=== PATIENT | male | born 1940 | race Caucasian/White ===

== ENCOUNTER → 2023-11-13 12:08 | Outpatient (REF) | payer MEDICARE, SELFPAY | LOC: RAD 12:08 | PROVIDERS: ATTENDING PHYSICIAN Physician Assistant; FAMILY PHYSICIAN Internal Medicine | DX: I71.40 Abdominal aortic aneurysm, without rupture, unspecified (principal) | CPT/HCPCS: 74176 ==

== ENCOUNTER 2023-12-14 09:35 | Emergency (ER) | payer MEDICARE, SELFPAY ==
[2023-12-14 09:39] VITALS: BP 182/99
[2023-12-14 10:57] VITALS: BP 164/79
[2023-12-14 11:21] LABS: % Basophils 0.6 % (0-2); % Eosinophils 2.6 % (0-6); % Immature Granulocytes 0.5 % (0-0.5); % Monocytes 9.3 % (1.7-9.3); Absolute Eosinophils 0.2 10^3/uL (0-0.7); Absolute Lymphocytes 1.6 10^3/uL (1.2-3.4); Absolute Monocytes 0.6 10^3/uL (0.1-0.6); Absolute Neutrophils 4.2 10^3/uL (1.4-6.5); Hematocrit 41.7 % (39.0-52.0); Hemoglobin 14.4 g/dL (13.0-18.0); Mean Corp Hgb Conc. 34.5 g/dL (33.0-37.0); Mean Corpuscular Hgb 34.9 pg (27.0-31.0); Mean Platelet Volume 10.3 fL (7.4-10.4); Nucleated Red Blood Cells % 0 % (-); Platelet Count 137 10^3/uL (130-400); Red Blood Cell Count 4.13 10^6/uL (4.70-6.10); Red Cell Dist. Width 11.9 % (11.5-14.5); White Blood Cell Count 6.7 10^3/uL (4.8-10.8)
[2023-12-14 11:25] LABS: ALT (SGPT) 59 U/L (0-50); AST (SGOT) 38 U/L (17-59); Albumin 4.5 g/dl (3.5-5.0); Alkaline Phosphatase 93 U/L (38-126); Blood Urea Nitrogen 19 mg/dl (9-20); Calcium 9.4 mg/dl (8.4-10.2); Carbon Dioxide 24 mmol/L (22-30); Chloride 111 mmol/L (98-107); Glucose 117 mg/dl (70-99); Potassium 4.3 mmol/L (3.5-5.1); Sodium 139 mmol/L (135-145); Total Bilirubin 1.4 mg/dl (0.2-1.3); Total Protein 7.1 g/dl (6.3-8.2); eGFR > 60.00
--- NOTE | 2023-12-14 11:26 | ED.GENMED ---
History of Present Illness
<Keyla Celaya PA-C - Last Filed: 12/14/23 14:04>
General
Chief Complaint: Blood Pressure Problem
Source: patient and family
Exam Limitations: none
Time Seen by Provider: 12/14/23 10:52
Nursing documentation reviewed up to this point in time: agreed with
Travel History
Have you had any contact with someone who has COVID-19?: No
Do you have any symptoms of coronavirus? Fever > 100 degrees, chills, cough, shortness of breath, sore throat, loss of taste or smell, muscle aches, or headache?: No
History of Present Illness
History of Present Illness:
83-year-old male with a history of CVA, AAA, hypertension, hyperlipidemia presenting to the emergency department today with concerns of high blood pressure. Patient states that he has a follow-up appointment with his remelt operator and his primary
care provider regarding his blood pressure, he was doing a routine check today when he noticed that his systolic blood pressure was in the 200s in the 180s at times. He notes that his blood pressure normally runs systolically in the 130s to 140s.
Patient states that he has been on and off losartan many times in the past. He states that his blood pressure will ultimately be controlled on it, they will trial going off of it, and will elevate and will have to restart on it again. Patient was
seen by his family doctor 10 days ago for worsening back pain and started taking NSAIDs nightly, at that time, his blood pressure was elevated and his PCP wanted him to start checking it more often. Patient does have an appointment with his primary
care provider on Friday and his remelt operator Dr. Langford in 10 days. Patient denies any chest pain, shortness of breath, dizziness, lightheadedness, syncopal episodes, abdominal pain, changes to his urinary habits.
Past History
<Keyla Celaya PA-C - Last Filed: 12/14/23 14:04>
Past History
ED Past Medical History: Cancer (prostate CA), HTN, Hypercholesterolemia and Other (hemachromatosis)
ED Past Surgical History: Appendectomy, Orthopedic (Left hip replacement), Urological (prostatectomy) and Other (AAA stent)
Social History
Alcohol: Occasional
Drug: None
Personal:
Living: with family
Review of Systems
<Keyla Celaya PA-C - Last Filed: 12/14/23 14:04>
Review of Systems
All Other Systems: ROS reviewed and negative except as documented in HPI and ROS
Phy Exam
<Keyla Celaya PA-C - Last Filed: 12/14/23 14:04>
Physical Exam
Physical Exam:
Vitals: Vital signs are stable
General: Patient is well-appearing and in no acute distress
Skin: warm and dry, no rashes or lesions
Cardiac: regular rate and rhythm, no murmurs
Pulm: normal respiratory effort, no wheezes, rales, or rhonchi
Abdomen: no abdominal tenderness
Neuro: AAOx3.
Course
<Kyela Celaya PA-C - Last Filed: 12/14/23 14:04>
Orders/Labs/Results
Orders:
Orders
12/14/23 09:44
Electrocardiogram (*1) Urgent
Reason for Study: Hypertension, Benign
EKG- Treatment ONCE
12/14/23 11:06
CMP [Comprehensive Metabolic Panel] Urgent
Complete Blood Count/With Diff Urgent
Abnormal Lab Results
12/14/23
11:06
RBC 4.13 L 10^6/uL
(4.70-6.10)
MCV 101.0 H fL
(80.0-94.0)
MCH 34.9 H pg
(27.0-31.0)
Chloride 111 H mmol/L
(98-107)
Glucose 117 H mg/dl
(70-99)
Total Bilirubin 1.4 H mg/dl
(0.2-1.3)
ALT 59 H U/L
(0-50)
12/14/23 11:06
12/14/23 11:06
Vital Signs
Initial and Last Documented VS:
Initial Vital Signs
Temp Pulse Resp BP Pulse Ox
98.2 F 74 16 182/99 95
12/14/23 09:39 12/14/23 09:39 12/14/23 09:39 12/14/23 09:39 12/14/23 09:39
Last Documented Vital Signs
Temp Pulse Resp BP Pulse Ox
98.2 F 66 18 164/79 96
12/14/23 09:39 12/14/23 11:15 12/14/23 11:15 12/14/23 10:57 12/14/23 11:15
<Jef Mayfield MD - Last Filed: 12/14/23 13:24>
Orders/Labs/Results
Orders:
Orders
12/14/23 09:44
Electrocardiogram (*1) Urgent
Reason for Study: Hypertension, Benign
EKG- Treatment ONCE
12/14/23 11:06
CMP [Comprehensive Metabolic Panel] Urgent
Complete Blood Count/With Diff Urgent
Abnormal Lab Results
12/14/23
11:06
RBC 4.13 L 10^6/uL
(4.70-6.10)
MCV 101.0 H fL
(80.0-94.0)
MCH 34.9 H pg
(27.0-31.0)
Chloride 111 H mmol/L
(98-107)
Glucose 117 H mg/dl
(70-99)
Total Bilirubin 1.4 H mg/dl
(0.2-1.3)
ALT 59 H U/L
(0-50)
12/14/23 11:06
12/14/23 11:06
Vital Signs
Initial and Last Documented VS:
Initial Vital Signs
Temp Pulse Resp BP Pulse Ox
98.2 F 74 16 182/99 95
12/14/23 09:39 12/14/23 09:39 12/14/23 09:39 12/14/23 09:39 12/14/23 09:39
Last Documented Vital Signs
Temp Pulse Resp BP Pulse Ox
98.2 F 66 18 164/79 96
12/14/23 09:39 12/14/23 11:15 12/14/23 11:15 12/14/23 10:57 12/14/23 11:15
<DENN[place] Ruff Last Filed: 12/14/23 14:04>
MDM/Problems Addressed
Differential Diagnosis Includes:
ddx include essential hypertension, NSAID induced HTN, pain induced HTN, chronic kidney disease, white coat hypertension
MDM/Problems Addressed:
blood pressure
Chronic conditions affecting care: HTN, Neurological disorder (CVA) and Other (AAA)
Acute Exacerbation and/or Progression of Chronic Illness: HTN
<[place] Ruff Last Filed: 12/14/23 14:04>
*Pulse Oximetry
Patient hypoxic: no
*Commodity Management Specialist Interpretation
Rate: normal
Interpretation: abnormal
Heart Rate: 80
Rhythm: sinus
*Critical Care Note
Total Time (30-74mins, 75-104mins- exclusive of procedures): Not Applicable
Data Reviewed
Review of Other/Old Records Reveals: Records (reviewed ER physician documentation from 08/14/20)
<[place] Ruff Last Filed: 12/14/23 14:04>
Patient Management
Escalation/DeEscalation of care consider admission/obs:
83-year-old male presenting emergency department today with concerns of high blood pressure. Patient reports that he started checking his blood pressure again because he saw his primary care provider 10 days ago due to back pain, and they noticed
it was elevated and advised him to start checking it. Patient reports that his back pain recently has been getting worse. I suspect this is likely the cause of his elevated blood pressure readings as of late. He states that he has been taking
NSAIDs nightly for this. Patient denies any chest pain, shortness of breath, dizziness, headache, syncopal episodes. Advised patient to restart his losartan, patient does have follow-up with his family doctor and remelt operator coming up in the
following days, patient will his blood pressure once daily and keep a log. Patient will return for any concerning signs or symptoms.
ED Attending Note
<Keyla Celaya PA-C - Last Filed: 12/14/23 14:04>
-
Portions of this chart may have been created with voice recognition software.� Occasional wrong word or��sound alike� substitutions may have occurred due to the inherent limitations of voice recognition software.
<Jef Mayfield MD - Last Filed: 12/14/23 13:24>
ED Attending Note
Patient seen and examined by attending physician: Yes
ED Attending Note:
Patient presents to ED secondary to elevated blood pressure noted at home with systolic blood pressure around 180 over the past 3 days including this morning. Patient states that his blood pressure is usually around, systolic blood pressure 130s to
140s. Patient has been on Cozaar for 6 years, was discontinued 2 years ago, as his blood pressure has been well-controlled. However, he started taking the medication again this morning, due to elevated blood pressure. Denies headache. Denies
chest pain. Denies shortness of breath. Denies leg pain or swelling. Denies recent change in medications or diet. Denies recent weight changes. Denies difficulty with urination.
Physical Exam
General: no apparent distress, not acutely ill. afebrile
Head: nc/at. eomi
Neck: supple. no meningeal signs.
Heart: s1/s2 regular rate and rhythm, no murmur. equal radial pulses.
Lungs: no acute respiratory distress. clear bilaterally
Abdomen: normal bowel sounds. not tender.
Neuro: alert and oriented. no focal neurological deficits
Skin: no rash
Psychiatric: well kept. interactive and cooperative
Extremities: no edema. no calf tenderness.
Patient with benign hypertension, which may be multifactorial, including but not limited to possible dietary indiscretion, medication effect, sedentary lifestyle, or other stressors in life. Otherwise, patient with improved blood pressure, without
any evidence of endorgan, nor any subjective complaints. As such, patient will be advised to continue Cozaar as an outpatient, along with a daily log of his blood pressure, as well as primary care physician follow-up over the next 1 to 2 weeks.
Patient expresses understanding at time of discharge to the care of his family.
Discharge Plan
Departure
Patient Disposition: Home (Routine Discharge)
Date of Disposition: 12/14/23
Time of Disposition: 11:23
Patient with high blood pressure during this ER visit?: Yes
Condition: Good
Discharge Problem:
Hypertension
Instructions: High Blood Pressure (DC)
Prescriptions:
No Action
dorzolamide-timolol (PF) [Cosopt (PF)] 1 EACH dropperette
1 drp BOTH EYES BID
brimonidine [Alphagan P] 10 ML drops
1 drp BOTH EYES BID
acetaminophen 325 MG tablet
650 mg PO Q4HPRN PRN (Reason: mild pain) 0RF
atorvastatin 10 MG tablet
10 mg PO QPM
naproxen sodium 220 MG capsule
220 mg PO HS
Diphenhydramine Tab
25 mg PO HS
alfuzosin [Uroxatral] 10 MG tablet extended release 24 hr
10 mg PO HS
tramadol 50 mg Tablet
50 mg PO PRN PRN (Reason: pain)
Referrals:
Can Blair MD [Family Provider] -
Activity Restrictions/Additional Instructions:
Please restart your Cozaar 50 mg once daily. Please check your blood pressure once daily at the same time every day.
Please keep your primary care follow up and cardiology follow up this week.
Please return to emergency department should you have chest pain, shortness of breath, dizziness, lightheadedness, fainting episodes, headache, or other concerning signs or symptoms.
Interventions
Interventions:
*Risk Screen - Suicide Last Done: 12/14/23 09:39
*Neglect/Abuse Screening Last Done: 12/14/23 09:39
ED- Fall Risk Assessment Last Done: 12/14/23 11:02
*ED COVID-19 Vaccine History Last Done: 12/14/23 09:39
*Nursing Disposition Last Done: 12/14/23 11:46
ED- Cardiac Assessment Last Done: 12/14/23 11:04
ED- Neurological Assessment Last Done: 12/14/23 11:03
ED- Pulmonary Assessment Last Done: 12/14/23 11:04
Discharge Date and Time
Discharge Date/Time: 12/14/23 11:47
== END 2023-12-14 11:47 | disposition home or self-care (01) ==
LOC: EMR 09:35
PROVIDERS: EMERGENCY PHYSICIAN Emergency Medicine; FAMILY PHYSICIAN Internal Medicine
DX: I10 Essential (primary) hypertension (principal); I71.40 Abdominal aortic aneurysm, without rupture, unspecified; E78.00 Pure hypercholesterolemia, unspecified; Z85.46 Personal history of malignant neoplasm of prostate; Z86.73 Personal history of transient ischemic attack (TIA), and cerebral infarction without residual deficits; Z86.79 Personal history of other diseases of the circulatory system; Z90.49 Acquired absence of other specified parts of digestive tract; Z90.79 Acquired absence of other genital organ(s); Z96.642 Presence of left artificial hip joint
CPT/HCPCS: 99283; 80053; 85025; 93005

== ENCOUNTER → 2024-01-22 11:25 | Outpatient (REF) | payer MEDICARE, SELFPAY ==
[2024-01-22 13:23] LABS: HDL Cholesterol 54 mg/dl; LDL Cholesterol, Calculated 39 mg/dl; Total Cholesterol 104 mg/dl (50-199); Triglyceride 59 mg/dl (10-149); Very Low Density Lipoprotein 11 mg/dl (0-30)
== END ==
LOC: REG 11:25
PROVIDERS: ATTENDING PHYSICIAN Internal Medicine Cardiovascular Disease
DX: E78.00 Pure hypercholesterolemia, unspecified (principal)
CPT/HCPCS: 36415; 80061

== ENCOUNTER → 2024-02-04 08:35 | Outpatient (REF) | payer MEDICARE, SELFPAY ==
[2024-02-04 11:27] LABS: % Basophils 0.6 % (0-2); % Eosinophils 2.1 % (0-6); % Immature Granulocytes 0.3 % (0-0.5); % Lymphocytes 26.2 % (20.5-51.1); % Monocytes 10.2 % (1.7-9.3); % Neutrophils 60.6 % (42.2-75.2); Absolute Eosinophils 0.1 10^3/uL (0-0.7); Absolute Lymphocytes 1.7 10^3/uL (1.2-3.4); Absolute Monocytes 0.7 10^3/uL (0.1-0.6); Hematocrit 40.7 % (39.0-52.0); Hemoglobin 13.6 g/dL (13.0-18.0); Mean Corp Hgb Conc. 33.4 g/dL (33.0-37.0); Mean Corpuscular Hgb 33.9 pg (27.0-31.0); Mean Corpuscular Volume 101.5 fL (80.0-94.0); Nucleated Red Blood Cells % 0 % (-); Platelet Count 139 10^3/uL (130-400); Red Blood Cell Count 4.01 10^6/uL (4.70-6.10); Red Cell Dist. Width 11.6 % (11.5-14.5); White Blood Cell Count 6.6 10^3/uL (4.8-10.8)
== END ==
LOC: RAD 08:35
PROVIDERS: ATTENDING PHYSICIAN Internal Medicine Hematology & Oncology; FAMILY PHYSICIAN Psychiatry & Neurology Neurology
DX: G57.01 Lesion of sciatic nerve, right lower limb (principal); E83.110 Hereditary hemochromatosis; M79.604 Pain in right leg
CPT/HCPCS: 36415; 76882; 82728; 85025

== ENCOUNTER 2024-02-25 13:29 | Outpatient (RCR) | payer MEDICARE, SELFPAY ==
[2024-02-25 13:40] VITALS: BP 147/84
[2024-02-25 13:55] VITALS: BP 123/66
[2024-02-25 14:06] VITALS: BP 117/67
== END 2024-02-26 08:12 | disposition home or self-care (01) ==
LOC: OID 13:29
PROVIDERS: ATTENDING PHYSICIAN Internal Medicine Hematology & Oncology; FAMILY PHYSICIAN Internal Medicine
DX: E83.110 Hereditary hemochromatosis (principal)
CPT/HCPCS: 99195

== ENCOUNTER → 2024-07-13 09:49 | Outpatient (REF) | payer MEDICARE, SELFPAY | LOC: RCS 09:49 | PROVIDERS: ATTENDING PHYSICIAN Internal Medicine Cardiovascular Disease; FAMILY PHYSICIAN Internal Medicine | DX: I45.2 Bifascicular block (principal); E83.110 Hereditary hemochromatosis | CPT/HCPCS: 93306 ==

== ENCOUNTER → 2024-12-29 09:54 | Outpatient (REF) | payer MEDICARE, SELFPAY ==
[2024-12-29 11:22] LABS: % Basophils 0.4 % (0-2); % Eosinophils 2.1 % (0-6); % Immature Granulocytes 0.6 % (0-0.5); % Lymphocytes 17.6 % (20.5-51.1); % Monocytes 7.4 % (1.7-9.3); % Neutrophils 71.9 % (42.2-75.2); Absolute Eosinophils 0.2 10^3/uL (0-0.7); Absolute Immature Granulocytes 0.1 10^3/uL (0-0.05); Absolute Lymphocytes 1.4 10^3/uL (1.2-3.4); Absolute Monocytes 0.6 10^3/uL (0.1-0.6); Absolute Neutrophils 5.8 10^3/uL (1.4-6.5); Hematocrit 44.1 % (39.0-52.0); Mean Corpuscular Hgb 34.7 pg (27.0-31.0); Mean Corpuscular Volume 102.1 fL (80.0-94.0); Mean Platelet Volume 10.7 fL (7.4-10.4); Nucleated Red Blood Cells % 0 % (-); Platelet Count 150 10^3/uL (130-400); Red Blood Cell Count 4.32 10^6/uL (4.70-6.10); Red Cell Dist. Width 11.9 % (11.5-14.5); White Blood Cell Count 8.1 10^3/uL (4.8-10.8)
[2024-12-29 12:13] LABS: ALT (SGPT) 33 U/L (0-50); AST (SGOT) 24 U/L (17-59); Albumin 4.7 g/dl (3.5-5.0); Alkaline Phosphatase 88 U/L (38-126); Blood Urea Nitrogen 18 mg/dl (9-20); Calcium 9.7 mg/dl (8.4-10.2); Carbon Dioxide 25 mmol/L (22-30); Chloride 105 mmol/L (98-107); Glucose 111 mg/dl (70-99); HDL Cholesterol 60 mg/dl; LDL Cholesterol, Calculated 37 mg/dl; Potassium 4.2 mmol/L (3.5-5.1); Sodium 140 mmol/L (135-145); Total Bilirubin 1.6 mg/dl (0.2-1.3); Total Cholesterol 111 mg/dl (50-199); Total Protein 7.1 g/dl (6.3-8.2); Triglyceride 73 mg/dl (10-149); Very Low Density Lipoprotein 14 mg/dl (0-30); eGFR > 60.00
[2024-12-29 12:34] LABS: TSH 1.35 uIU/ml (0.47-4.68)
[2024-12-29 12:38] LABS: Glycohemoglobin (HgbA1c) 5.7 % (4.0-5.6)
[2024-12-31 07:29] LABS: PSA Total <0.1 ng/mL (0.0-4.0)
== END ==
LOC: REG 09:54
PROVIDERS: ATTENDING PHYSICIAN Internal Medicine; REFERRING PHYSICIAN Surgery Vascular Surgery
DX: I71.40 Abdominal aortic aneurysm, without rupture, unspecified (principal); I10 Essential (primary) hypertension; R73.03 Prediabetes; H81.09 Meniere's disease, unspecified ear; I95.1 Orthostatic hypotension; I35.1 Nonrheumatic aortic (valve) insufficiency; E78.5 Hyperlipidemia, unspecified; N40.0 Benign prostatic hyperplasia without lower urinary tract symptoms; R53.83 Other fatigue
CPT/HCPCS: 36415; 80053; 80061; 83036; 84153; 84154; 84443; 85025

== ENCOUNTER → 2025-01-03 10:03 | Outpatient (REF) | payer MEDICARE, SELFPAY | LOC: HWRAD 10:03 | PROVIDERS: ATTENDING PHYSICIAN Surgery Vascular Surgery; FAMILY PHYSICIAN Internal Medicine | DX: I71.40 Abdominal aortic aneurysm, without rupture, unspecified (principal) | CPT/HCPCS: 74176 ==

== ENCOUNTER → 2025-04-08 10:40 | Outpatient (REF) | payer MEDICARE, SELFPAY | LOC: HWRAD 10:40 | PROVIDERS: ATTENDING PHYSICIAN Internal Medicine Cardiovascular Disease; FAMILY PHYSICIAN Internal Medicine | DX: I71.21 Aneurysm of the ascending aorta, without rupture (principal) | CPT/HCPCS: 71250 ==